=== PATIENT | male | born 1985 | race Caucasian/White ===

== ENCOUNTER 2023-07-12 20:20 | Emergency (ER) | payer OTHER ==
[~2023-07-12] VITALS: Ht 134.6 cm; Wt 73.0 kg
[2023-07-12 20:40] VITALS: BP 141/79; PULSE 85; RESP 18; TEMP 98.1; O2SAT 97
[2023-07-12] MEDS: LIDOCAINE MPF 1% 10 MG/ML VIAL INJ ONE (21:50)
[2023-07-12] MEDS: BACITRACIN OINT 500 UNITS/GM PKT TP ONE (22:19)
== END 2023-07-12 22:17 | disposition home or self-care (01) ==
LOC: MED 20:20
DX: S01.21XA Laceration without foreign body of nose, initial encounter (principal); S51.812A Laceration without foreign body of left forearm, initial encounter; W26.8XXA Contact with other sharp object(s), not elsewhere classified, initial encounter; Y93.89 Activity, other specified; Y92.89 Other specified places as the place of occurrence of the external cause; Y99.8 Other external cause status
CPT/HCPCS: 12001; 12011; 90471; 90715; 99284; J2001